=== PATIENT | male | born 1945 | race Caucasian/White ===

== ENCOUNTER 2017-01-05 14:13 | Inpatient (IN) | payer MEDICARE, OTHER ==
--- NOTE | ~2017-01-05 | CN ---
Consultation Report [facility] [address] [place]. [address] NAME: AMBAR MONTES : [birth year] STATUS : ADM IN PAT#: [id number] AGE: 71 ADM/REG DATE : 01/05/17 MR#: [id number] REPORT SERV DATE: 01/07/17 DICTATED BY: JUSTIN LIGHT DATE: 01/07/17 REPORT STATUS : Draft TRANSCRIBED BY: MODL DATE: 01/07/17 DATE OF CONSULTATION: This patient has a history of colorectal cancer with colorectal anastomosis. Last colonoscopy was in 2013. He has also had some gastroparesis. He recently was noted to have a decreased hemoglobin. He is on Eliquis at home. He has not seen any gross blood. Denies any dizziness. PAST MEDICAL HISTORY: History of atrial fibrillation on Eliquis; AICD pacer. Colon cancer in 2002. Left lung lobectomy in 2004. MEDICINES: 1. ProAir. 2. Xanax. 3. Cordarone. 4. Eliquis. 5. Baby aspirin. 6. MiraLAX. 7. Singulair. 8. Crestor. 9. Entresto. PHYSICAL EXAMINATION: VITAL SIGNS: Blood pressure 135/73. CHEST: Clear. CARDIAC: Exam normal. ABDOMEN: Soft, nontender. EXTREMITIES: No deformity or edema. IMPRESSION: Iron deficiency. Probably has chronic low-grade blood loss. No gross bleeding. PLAN: We will do EGD in colon. MG/IJEOMA Justin Light M.D. / [id number] CC: MD APOLINAR Arango
--- NOTE | ~2017-01-05 | CN ---
Consultation Report [facility] [address] [facility] [place]. [address] NAME: AMBAR MONTES : [birth year] STATUS : ADM Anay PAT#: [id number] AGE: 71 ADM/REG DATE : 01/05/17 MR#: [id number] REPORT SERV DATE: 01/06/17 DICTATED BY: EZEKIEL QUEEN DATE: 01/05/17 REPORT STATUS : Draft TRANSCRIBED BY: MODL DATE: 01/05/17 CARDIOLOGY CONSULTATION DATE OF CONSULTATION: REQUESTING PHYSICIAN: Artur Herrera MD [facility] PHYSICIAN: Mahin Olivera M.D. INDICATION: A 71-year-old man with cardiomyopathy and atrial fibrillation. HISTORY OF PRESENT ILLNESS: Mr. Montes is a 71-year-old man who has been followed by Dr. Olivera for a number of years with a history of a non-ischemic cardiomyopathy and atrial fibrillation. Overall, he has been doing fairly well from a cardiac standpoint. He went to see his primary care doctor recently, and he had some blood drawn. He returned today and was noted to be anemic. There was a question of some vague chest tightness, so he was sent to the emergency room and admitted. He has had no specific exertional symptoms. He has had a little bit of fatigue. This all seems to correlate with his lower blood count. He has no palpitations, lightheadedness, dizziness, or syncope. No lower extremity edema, PND, or orthopnea. He does have some generalized fatigue. He has not noticed any black tarry stools. No fevers or chills. No nausea. REVIEW OF SYSTEMS: As per the history of present illness. Ten other systems are negative. PAST MEDICAL HISTORY: 1. Variable cardiomyopathy with recent LVEF of 55% by echocardiogram on 08/28. 2. History of ventricular tachycardia status post defibrillator, on chronic antiarrhythmic medications. 3. Hypertension. 4. Hypercholesterolemia. 5. PVCs. 6. History of metastatic colon cancer. FAMILY HISTORY: No heart disease early in life. SOCIAL HISTORY: No tobacco. No alcohol. ALLERGIES: FENTANYL AND SILVER. HOME MEDICATIONS: Albuterol, Xanax 0.5 p.o. b.i.d., Cordarone 200 in the morning and 100 in the evening, Eliquis 5 p.o. b.i.d., aspirin 81 daily, carvedilol 3.125 mg p.o. b.i.d., Proscar 5 daily, Lasix 40 q.48 h., Vascepa, Singulair, multivitamin, MiraLAX, potassium 10 daily, Crestor 40 daily, and Entresto b.i.d. Consultation Report [place] [address] [place]. [address] NAME: AMBAR MONTES : [birth year] STATUS : ADM Anay PAT#: [id number] AGE: 71 ADM/REG DATE : 01/05/17 MR#: [id number] REPORT SERV DATE: 01/06/17 DICTATED BY: EZEKIEL QUEEN DATE: 01/05/17 REPORT STATUS : Draft TRANSCRIBED BY: IJEOMA DATE: 01/05/17 PHYSICAL EXAMINATION: VITAL SIGNS: The patient is afebrile. Heart rate 66 and blood pressure 120/58. GENERAL: The patient is pleasant, elderly white male, in no apparent distress. HEENT: Conjunctivae are anicteric, no xanthelasma, lips without cyanosis. NECK: Supple, normal JVP, carotids +2 without bruit. LUNGS: Clear to auscultation bilaterally, no wheezes, rales or rhonchi. CARDIOVASCULAR: Regular rate and rhythm. Normal S1 and S2 without S3. No murmur or rub. PMI is nondisplaced. ABDOMEN: Soft, nontender, nondistended, with normal bowel sounds. No hepatomegaly. EXTREMITIES: No clubbing, cyanosis or edema. NEURO/PSYCH: Alert and oriented to person, place and time. No obvious neurologic deficits. Mood and affect normal. DATA: Lab significant for hematocrit of 33.6, microcytic. Creatinine is 1.2. BNP is 215. Chest x-ray shows no airway disease. EKG shows sinus rhythm with ventricular pacing. IMPRESSION: 1. Anemia with apparent gastrointestinal bleeding. 2. History of atrial fibrillation, on chronic anticoagulation. CHADS Vasc score has been 3. Moderate stroke risk. 3. History of non-ischemic cardiomyopathy. Recent echocardiogram in August of 2016, with EF of 55%. 4. History of biventricular ICD with non-sustained ventricular tachycardia. Stable on antiarrhythmic therapy. 5. Colon cancer. Reportedly metastatic. 6. History of hypertension, high cholesterol, and sleep apnea. RECOMMENDATIONS: Mr. Montes presents with anemia and some vague chest tightness. I think this is unlikely to be ischemia related. He does have anemia. No gross GI bleeding as best I can tell. His Eliquis has been held, and that is reasonable. I think he has moderate stroke risk off anticoagulants. I agree with whatever GI evaluation is necessary and would recommend restarting Eliquis if possible after that evaluation is complete, and I have discussed this with the patient. Thank you for this consultation. Please contact me if you have any further questions. I will notify Dr. Olivera of his admission. WO/MODL Consultation Report [facility] [address] [facility] [place] [place] [address] NAME: AMBAR MONTES : [birth year] STATUS : ADM Anay PAT#: [id number] AGE: 71 ADM/REG DATE : 01/05/17 MR#: [id number] REPORT SERV DATE: 01/06/17 DICTATED BY: EZEKIEL QUEEN DATE: 01/05/17 REPORT STATUS : Draft TRANSCRIBED BY: MODMichelle DATE: 01/05/17 Ezekiel Queen M.D., Ph.D, F.A.C.C. / [id number] CC: Emma Meza MD
--- NOTE | ~2017-01-05 | EGD ---
EGD REPORT [facility] [address]. [address] NAME: AMBAR MONTES : 47 STATUS : ADM IN PAT#: [id number] AGE: 71 ADM/REG DATE : 01/05/17 MR#: [id number] REPORT SERV DATE: 01/07/17 DICTATED BY: JUSTIN LIGHT DATE: 01/07/17 REPORT STATUS : Draft TRANSCRIBED BY: [facility] DATE: 01/07/17 Endoscopy Center Patient Name: Ambar Montes Date of : 1945 Attending MD: JUSTIN LIGHT MD Procedure Date No Time: 01/07/2017 Procedure: Colonoscopy Indications: Iron deficiency anemia Referring MD: APOLINAR MAJOR Medicines: Propofol per Anesthesia Complications: No immediate complications. Procedure: Pre-Anesthesia Assessment: - ASA Grade Assessment: [ASA Grade]. - ASA Grade Assessment: III - A patient with severe systemic disease. After I obtained informed consent, the scope was passed under direct vision. Throughout the procedure, the patient's blood pressure, pulse, and oxygen saturations were monitored continuously. The PCF [id number] was introduced through the anus and advanced to the ileocolonic anastomosis. The colonoscopy was performed without difficulty. The patient tolerated the procedure well. The quality of the bowel preparation was excellent. Findings: The ileum, 2 cm from the ileocecal anastomosis contained one sessile, non-bleeding polyp. The polyp was 3 mm in diameter. The polyp was removed with a cold biopsy forceps. Resection and retrieval were complete. There was evidence of a prior end-to-side colo-colonic anastomosis in the distal ascending colon. This was patent. This was characterized by healthy appearing mucosa. This was traversed. Multiple small-mouthed diverticula were found in the sigmoid colon. The retroflexed view of the distal rectum and anal verge was normal and showed no anal or rectal abnormalities. Impression: - One polyp. Resected and retrieved. - Patent end-to-side colo-colonic anastomosis. - Diverticulosis in the sigmoid colon. Recommendation: - Return patient to [facility] for [facility] care. Procedure Code(s): --- Professional --- 96804, Colonoscopy, flexible, proximal to splenic flexure; with biopsy, single or multiple EGD REPORT [address] [address] NAME: AMBRA MONTES : [birth year] STATUS : ADM IN [facility]#: [id number] AGE: 71 ADM/REG DATE : 01/05/17 MR#: [id number] REPORT SERV DATE: 01/07/17 DICTATED BY: JUSTIN LIGHT. DATE: 01/07/17 REPORT STATUS : Draft TRANSCRIBED BY: [employer] DATE: 01/07/17 Diagnosis Code(s): --- Professional --- K63.89, Other specified diseases of intestine Z98.0, Intestinal bypass and anastomosis status K57.30, Diverticulosis of large intestine without perforation or abscess without bleeding D50.9, Iron deficiency anemia, unspecified CPT copyright 2013 [employer]. All rights reserved. The codes documented in this report are preliminary and upon card fixer review may be revised to meet current compliance requirements. Justin Light MD JUSTIN LIGHT MD 01/07/2017 1:04 PM This report has been signed electronically. Number of Addenda: 0 Note Initiated On: 01/07/2017 12:17 PM Scope Withdrawal Time 0 hours 0 minutes 0 seconds [address] [place] [address]
--- NOTE | ~2017-01-05 | HP ---
History And Physical [address] [address] NAME: AMBAR MONTES : [birth year] STATUS : ADM Anay PAT#: [id number] AGE: 71 ADM/REG DATE : 01/05/17 MR#: [id number] REPORT SERV DATE: 01/06/17 DICTATED BY: NOE JUÁREZ DATE: 01/05/17 REPORT STATUS : Draft TRANSCRIBED BY: IJEOMA DATE: 01/05/17 DATE OF ADMISSION: 01/05/2017 CHIEF COMPLAINT: Low hemoglobin. HISTORY OF PRESENT ILLNESS: This is a 71-year-old man with past medical history of colon cancer, who comes in to the ED after being told by primary care physician that his hemoglobin was low. The patient reports no complaints. He denies any hematochezia, hemoptysis, melena. The patient reports one episode of diarrhea yesterday. Denies any fever, chills, cough, chest pain, shortness of breath, palpitations, diaphoresis, dizziness, abdominal pain, loss of consciousness, slurred speech, localized weakness. The patient was evaluated in the emergency room and found his hemoglobin to be around 10. The patient reports that primary care physician had checked his hemoglobin a couple of months ago and it was normal, reported a 3 unit drop. The patient was admitted for further management as his Hemoccult was positive. PAST MEDICAL HISTORY: 1. History of paroxysmal atrial fibrillation, on Eliquis, status post ablation. 2. COPD. 3. AICD pacer placement by Dr. Olivera. 4. Hypertension. 5. History of GI bleed. 6. Obstructive sleep apnea, on CPAP. 7. Colon cancer in 2002, status post right hemicolectomy and then spread cancer in his lung, status post left lung lobectomy in 2004, and history of chemotherapy. 8. Nonischemic cardiomyopathy. 9. Gastroparesis. HOME MEDICATIONS: Include: 1. ProAir HFA two puffs inhaled every four hours p.r.n. 2. Xanax 0.5 mg p.o. b.i.d. 3. Cordarone 200 mg p.o. daily. 4. 100 mg p.o. at bedtime. 5. Eliquis 5 mg p.o. b.i.d. 6. Aspirin 81 mg p.o. at bedtime. 7. Coreg 3.125 mg p.o. b.i.d. 8. Finasteride 5 mg at bedtime. 9. Lasix 40 mg every 48 hours. 10.Vascepa 1 g capsule 2 g p.o. b.i.d. 11.Singulair 10 mg p.o. at bedtime. 12.Multivitamin p.o. daily. 13.MiraLAX packet at bedtime. 14.Klor-Con 10 mEq p.o. daily. 15.Crestor 40 mg at bedtime. 16.Entresto 24/25 mg p.o. b.i.d. History And Physical [address] [address] NAME: AMBAR MONTES : [birth year] STATUS : ADM Anay PAT#: [id number] AGE: 71 ADM/REG DATE : 01/05/17 MR#: [id number] REPORT SERV DATE: 01/06/17 DICTATED BY: NOE JUÁREZ DATE: 01/05/17 REPORT STATUS : Draft TRANSCRIBED BY: IJEOMA DATE: 01/05/17 ALLERGIES: FENTANYL, SILVER, IV AMIODARONE. PAST SURGICAL HISTORY: 1. Left hip surgery. 2. AICD replacement. 3. Left lung lobectomy metastatic colon cancer. 4. Right hemicolectomy for colon cancer. 5. Cholecystectomy. 6. Pelvic fracture surgery. SOCIAL HISTORY: Denies any alcohol, tobacco, or illicit drug use. FAMILY HISTORY: Positive for heart disease and diabetes. REVIEW OF SYSTEMS: 12-point system reviewed, otherwise negative per HPI. PHYSICAL EXAMINATION: VITAL SIGNS: Temperature 97.7, heart rate 64, blood pressure 135/73, respiratory rate 18, O2 saturation 97 on room air. GENERAL: No acute distress. HEENT: EOMI, PERRLA, nonicteric sclerae, nonerythematous pharynx. NECK: Supple. No JVD. No lymphadenopathy. RESPIRATORY: Clear to auscultation bilaterally. No wheezes, rhonchi, or crackles. CARDIOVASCULAR: Regular rate and rhythm. No murmurs, rubs, or gallops. ABDOMEN: Bowel sounds positive. Soft, nontender, nondistended. No rebound or guarding. EXTREMITIES: No edema or cyanosis. NEUROLOGICAL: Alert and oriented x3. Cranial nerves 2 through 12 intact. Nonfocal. LABORATORY DATA: WBC of 5.7, hemoglobin 10.4, hematocrit 33.6, platelets 244. INR 1.3. Sodium 142, potassium 3.9, chloride 106, bicarb 28, BUN 20, creatinine 1.21, glucose 92, calcium 8.7, magnesium 2.4, BNP 215. Troponin less than 0.02. IMAGING: Chest x-ray, portable impression: Stable mild cardiomegaly with pacing devices in place. No acute process otherwise demonstrated radiographically. ASSESSMENT: 1. Gastrointestinal bleed. 2. History of atrial fibrillation, on Eliquis. 3. Chronic obstructive pulmonary disease without exacerbation. 4. History of AICD/pacer. 5. Hypertension. 6. Obstructive sleep apnea. 7. History of colon cancer. 8. Nonischemic cardiomyopathy. 9. History of gastroparesis. History And Physical [address] [address] NAME: AMBAR MONTES : [birth year] STATUS : ADM Anay PAT#: [id number] AGE: 71 ADM/REG DATE : 01/05/17 MR#: [id number] REPORT SERV DATE: 01/06/17 DICTATED BY: NOE JUÁREZ DATE: 01/05/17 REPORT STATUS : Draft TRANSCRIBED BY: IJEOMA DATE: 01/05/17 PLAN: The patient will be admitted to medical bed. Consult Dr. Romero for GI bleed, consult Dr. Olivera for question of further anticoagulation. Serial H and H q.6 hours. Transfuse to keep hemoglobin greater than 8. Hold Eliquis and aspirin for now. Restart appropriate home medications. Protonix GTT, DVT prophylaxis SCDs. Further evaluation and management per clinical course. CODE STATUS: Full code. Total time for history and physical 35 minutes. RLV/MODL Emma Meza MD / [id number] CC: Emma Meza MD
--- NOTE | ~2017-01-05 | EGD ---
EGD REPORT [facility] [address] [address] NAME: AMBAR MONTES : 47 STATUS : ADM IN PAT#: [id number] AGE: 71 ADM/REG DATE : 01/05/17 MR#: [id number] REPORT SERV DATE: 01/07/17 DICTATED BY: JUSTIN LIGHT DATE: 01/07/17 REPORT STATUS : Draft TRANSCRIBED BY: [facility] DATE: 01/07/17 Endoscopy Center Patient Name: Ambar Montes Date of : 1945 Attending MD: JUSTIN LIGHT MD Procedure Date No Time: 01/07/2017 Procedure: Upper GI endoscopy Indications: Iron deficiency anemia Referring MD: APOLINAR MAJOR Medicines: Propofol per Anesthesia Complications: No immediate complications. Procedure: Pre-Anesthesia Assessment: - ASA Grade Assessment: III - A patient with severe systemic disease. After obtaining informed consent, the endoscope was passed under direct vision. Throughout the procedure, the patient's blood pressure, pulse, and oxygen saturations were monitored continuously. The GIF H190 [id number] was introduced through the mouth, and advanced to the third part of duodenum. The upper GI endoscopy was accomplished without difficulty. The patient tolerated the procedure well. Findings: The esophagus was normal. The stomach was normal. The examined duodenum was normal. Impression: - Normal esophagus. - Normal stomach. - Normal examined duodenum. Procedure Code(s): --- Professional --- 83785, Esophagogastroduodenoscopy, flexible, transoral; diagnostic, including collection of specimen(s) by brushing or washing, when performed (separate procedure) Diagnosis Code(s): --- Professional --- D50.9, Iron deficiency anemia, unspecified CPT copyright 2013 [employer]. All rights reserved. The codes documented in this report are preliminary and upon health information coder review may be revised to meet current compliance requirements. EGD REPORT [facility] [address] [address] NAME: AMBAR MONTES : [birth year] STATUS : ADM IN [facility]#: [id number] AGE: 71 ADM/REG DATE : 01/05/17 MR#: [id number] REPORT SERV DATE: 01/07/17 DICTATED BY: JUSTIN LIGHT. DATE: 01/07/17 REPORT STATUS : Draft TRANSCRIBED BY: [employer] DATE: 01/07/17 Justin Light MD JUSTIN LIGHT MD 01/07/2017 1:00 PM This report has been signed electronically. Number of Addenda: 0 Note Initiated On: 01/07/2017 12:16 PM Scope Withdrawal Time 0 hours 0 minutes 0 seconds [address] [place] [address]
--- NOTE | ~2017-01-05 | DS ---
Discharge Summary [place] [address] [facility] [place]. [address] NAME: AMBAR MONTES : [birth year] STATUS : DIS IN PAT#: [id number] AGE: 71 ADM/REG DATE : 01/05/17 MR#: [id number] REPORT SERV DATE: 01/08/17 DICTATED BY: NOE JUÁREZ DATE: 01/07/17 REPORT STATUS : Draft TRANSCRIBED BY: IJEOMA DATE: 01/07/17 ADMISSION DATE: 01/05/2017 DISCHARGE DATE: 01/07/2017 DISCHARGE DIAGNOSES: 1. GI bleed/iron deficiency anemia. 2. History of atrial fibrillation, on Coumadin and aspirin. 3. Chronic obstructive pulmonary disease without exacerbation. 4. History of AICD/pacer. 5. Hypertension. 6. Obstructive sleep apnea. 7. History of colon cancer. 8. Nonischemic cardiomyopathy. 9. History of gastroparesis. 10.IVF. DISCHARGE MEDICATIONS: Include: 1. Xanax 0.5 mg p.o. daily. 2. Amiodarone 200 mg p.o. daily and 100 mg at bedtime. 3. Coreg 3.125 mg p.o. b.i.d. 4. Proscar 5 mg p.o. at bedtime. 5. Singulair 10 mg p.o. at bedtime. 6. MiraLax one packet p.o. at bedtime. 7. Entresto one tab p.o. b.i.d. 8. Aspirin 81 mg p.o. at bedtime. 9. ProAir HFA two puffs inhaled every four hours p.r.n. 10.Klor-Con 10 mEq p.o. daily. 11.Multivitamin p.o. daily. 12.Lasix 40 mg every 48 hours. 13.Eliquis 5 mg p.o. b.i.d. 14.Crestor 40 mg p.o. at bedtime. 15.Vascepa 2 g p.o. b.i.d. 16.Pepcid 20 mg p.o. b.i.d. DISPOSITION AND FOLLOWUP: The patient is medically stable for discharge. Follow up with primary care physician in one week. Follow up with Cardiology and GI as directed. The patient was directed to follow up with GI for capsule endoscopy. HISTORY AND PHYSICAL: Per initial assessment. DISCHARGE VITALS: Temperature 97.7, heart rate 62, blood pressure 110/56, respiratory rate 21, O2 saturation 97 on room air. DISCHARGE LABS: WBC of 5.7, hemoglobin 9.8, hematocrit 37.7, platelets 244. Sodium 144, potassium 3.4, chloride 111, bicarb 27, BUN 11, creatinine 1.09, calcium 8.6. Discharge Summary [address] [address] NAME: AMBAR MONTES : [birth year] STATUS : DIS IN PAT#: [id number] AGE: 71 ADM/REG DATE : 01/05/17 MR#: [id number] REPORT SERV DATE: 01/08/17 DICTATED BY: NOE JUÁRZE DATE: 01/07/17 REPORT STATUS : Draft TRANSCRIBED BY: IJEOMA DATE: 01/07/17 IMAGING: Chest x-ray, impression, stable mild cardiomegaly, no acute process. HOSPITAL COURSE: A 71-year-old man with past medical history of paroxysmal atrial fibrillation, on Eliquis and aspirin, rate controlled. Comes into the ED as he was noticed to have a drop in hemoglobin by his primary care physician. The patient was admitted to the hospital and Dr. Romero of GI was consulted, and the patient's Cardiology was consulted for question of further anticoagulation. The patient's hemoglobin was stable throughout the course of the hospitalization. The patient did have endoscopy and colonoscopy done. Endoscopy results normal. Colonoscopy results, a 2 cm nonbleeding polyp, status post resection. Per Cardiology's recommendations, due to a risk for CVA, the patient will need to resume Eliquis and aspirin at discharge. GI has agreed with the patient to continue antiplatelet/anticoagulation. The patient is instructed to follow up with GI for capsule endoscopy. The patient was instructed to come back to the ED if any evidence of GI bleeding. The patient to resume all medications as described above. Further management as an outpatient. Follow up with primary care physician in one week. Total time for discharge planning 35 minutes. DICTATED BY: MD ROBERTO Arango/IJEOMA Emma Meza MD / [id number] CC: MD Fran Arango M.D.
[2017-01-05 13:32] LABS: BASOPHILS 0.2 %; BASOPHILS ABSOLUTE 0.01 10/3/uL (0.0-0.16); EOSINOPHILS 1.4 %; EOSINOPHILS ABSOLUTE 0.08 10/3/uL (0.0-0.53); ER CBC TAT 0 Hrs 03 Mins; HEMATOCRIT 33.6 % (40.0-51.0); HEMOGLOBIN 10.4 g/dL (13.6-17.8); IMMATURE GRANULOCYTES 0.2 %; IMMATURE GRANULOCYTES ABSOLUTE 0.01 10/3/uL (0.0-0.11); LYMPHOCYTES 25.4 %; LYMPHOCYTES ABSOLUTE 1.46 10/3/uL (0.67-4.30); MANUAL DIFF NO %; MEAN CORPUSCULAR VOLUME 77.6 fL (80-100); MEAN PLATELET VOLUME 9.6 fL (9.2-13.0); MONOCYTES 9.6 %; MONOCYTES ABSOLUTE 0.55 10/3/uL (0.21-1.20); NEUTROPHILS 63.2 %; NEUTROPHILS ABSOLUTE 3.63 10/3/uL (2.02-8.40); PLATELET COUNT 244 10/3/uL (150-400); RBC DISTRIBUTION WIDTH 15.8 % (12.0-16.0); RED CELL COUNT 4.33 10/6/uL (4.7-6.1); WHITE BLOOD CELLS 5.7 10/3/uL (4.5-10.5)
[2017-01-05 13:39] LABS: INTERNATIONAL NORMAL RATI 1.3 UNITS (-); PARTIAL THROMBO TIME 36.8 SEC (22.5-37.2); PROTIME (NOT ORD) 16.5 SEC (12.0-14.5)
[2017-01-05 13:48] LABS: BUN (BLOOD UREA NITROGEN) 20 MG/DL (6-23); CALCIUM, SERUM 8.7 MG/DL (8.5-10.4); CHEST PAIN PROFILE TAT 0 Hrs 19 Mins; CHLORIDE, SERUM 106 MMOL/L (96-112); CO2 (CARBON DIOXIDE) 28 MMOL/L (24-34); CREATININE 1.21 MG/DL (0.70-1.30); GFR AFRICAN AMERICAN 70 ML/MIN (>=60); GFR NON AFRICAN AMERICAN 60 ML/MIN (>=60); GLUCOSE, SERUM 92 MG/DL (60-99); POTASSIUM, SERUM 3.9 MMOL/L (3.5-5.3); SODIUM, SERUM 142 MMOL/L (135-148); TROPONIN I <0.02 NG/ML (<0.05)
[~2017-01-05 14:13] MED LIST: AFRIN15 NAS; ASAB PO; ASTELIN NAS; ASTEPRO0.15 % NAS; ATRONASAL6 NAS; AZELASTINE 0.1% NAS; CORDARONE PO; COREG12 PO; COREG25 PO; COREG3; COREG3 PO; COREG6 PO; COZ25 PO; CRESTOR20 MG PO; CRESTOR40 MG PO; DIGITEK0.125 MG PO; DIGITEK0.25 MG PO; DIOVAN40 MG PO; DRONED400 PO; ELIQUIS 5 MG TAB5 MG PO; FISH-EPA1000 MG PO; FLONASE NAS; FLOVENT220 INH; HALF81 PO; L40 PO; L80 PO; LAN25 PO; LEVAQUIN5T PO; LOFIBRA54 MG PO; MEXILETINE150 MG OR; MULTIPLE VIT PO; MULTIVIT/MIN PO; MULTIVITAMI1 PO; NEXIUM40 PO; OCEAN NAS; OCEAN NASAL SPRAY NAS; OPTIVAR0.05 % OP; PEP20 PO; PROAIR HFA INH; PROVHFA INH; RAN500 PO; RANEXA 500 MG PO; REG5 PO; RYTHMOL225 MG PO; SACU1TAB PO; SINGULAIR1 PO; SPIRO25 PO; STERAPDS12; SYMBICORT 160/41 INH INH; TAMBOCOR150 MG PO; VASCEPA 1GM PO; VASCEPA1 GM PO; VASEPA PO; VICODINTAB PO; VIT D PO; VYTORIN 10/80 T1 TAB PO; X5 PO; XANAX2 MG PO; XIFAXAN550 MG PO; ZYRTEC ALLGY10 MG PO; [UNRECOGNIZED DRUG - REMARK]
[2017-01-05] MEDS ORDERED: SINGULAIR1 PO (15:19)
[2017-01-05] MEDS ORDERED: MIRALAX POWDER1 PKT PO (15:19)
[2017-01-05] MEDS ORDERED: SACU1TAB PO (15:19)
[2017-01-05] MEDS ORDERED: X5 PO (15:20)
[2017-01-05] MEDS ORDERED: HALF81 PO (15:20)
[2017-01-05] MEDS ORDERED: PROAIR HFA INH (15:21)
[2017-01-05] MEDS ORDERED: KLOR-CON 1010 MEQ PO (15:21)
[2017-01-05] MEDS ORDERED: MULTIPLE VIT PO (15:21)
[2017-01-05] MEDS ORDERED: L40 PO (15:22)
[2017-01-05] MEDS ORDERED: COREG3 PO (15:22)
[2017-01-05] MEDS ORDERED: PROSCAR5 PO (15:22)
[2017-01-05] MEDS ORDERED: CORDARONE PO ×2 (15:23)
[2017-01-05] MEDS ORDERED: CRESTOR40 MG PO (15:23)
[2017-01-05] MEDS ORDERED: ELIQUIS 5 MG TAB5 MG PO (15:23)
[2017-01-05] MEDS ORDERED: VASCEPA1 GM PO (15:24)
[2017-01-05 20:19] LABS: HEMATOCRIT 33.4 % (40.0-51.0); HEMOGLOBIN 10.3 g/dL (13.6-17.8)
[2017-01-05 20:53] LABS: FERRITIN 10 NG/ML (26-388); IRON BINDING CAPACITY 386 MCG/DL (250-450); IRON, SERUM 33 MCG/DL (35-150)
[2017-01-06 01:49] LABS: HEMATOCRIT 30.8 % (40.0-51.0); HEMOGLOBIN 9.9 g/dL (13.6-17.8)
[2017-01-06 08:11] LABS: HEMATOCRIT 32.2 % (40.0-51.0)
[2017-01-06 14:17] LABS: HEMATOCRIT 32.1 % (40.0-51.0)
[2017-01-07 05:32] LABS: HEMATOCRIT 31.7 % (40.0-51.0); HEMOGLOBIN 9.8 g/dL (13.6-17.8)
[2017-01-07 05:45] LABS: CALCIUM, SERUM 8.6 MG/DL (8.5-10.4); CHLORIDE, SERUM 111 MMOL/L (96-112); CO2 (CARBON DIOXIDE) 27 MMOL/L (24-34); CREATININE 1.09 MG/DL (0.70-1.30); GFR AFRICAN AMERICAN 79 ML/MIN (>=60); GFR NON AFRICAN AMERICAN 68 ML/MIN (>=60); GLUCOSE, SERUM 81 MG/DL (60-99); POTASSIUM, SERUM 3.4 MMOL/L (3.5-5.3); SODIUM, SERUM 144 MMOL/L (135-148)
[2017-01-07 05:46] LABS: BUN (BLOOD UREA NITROGEN) 11 MG/DL (6-23)
[2017-01-07] MEDS ORDERED: PEP20 PO (19:15)
== END 2017-01-07 20:30 | disposition home or self-care (01) | DRG 348 ==
LOC: ER 14:13 → 4EA 16:54 → 5SO 22:20
PROVIDERS: Emergency Medicine; Internal Medicine; Internal Medicine Gastroenterology
PROC: 0DBB8ZZ Excision of Ileum, Via Natural or Artificial Opening Endoscopic (ICD-10-PCS; principal; 2017-01-07 12:00)
PROC: 0DJ08ZZ Inspection of Upper Intestinal Tract, Via Natural or Artificial Opening Endoscopic (ICD-10-PCS; 2017-01-07 12:00)
DX: K92.2 Gastrointestinal hemorrhage, unspecified (principal); I42.8 Other cardiomyopathies; I48.0 Paroxysmal atrial fibrillation; J44.9 Chronic obstructive pulmonary disease, unspecified; K31.84 Gastroparesis; D62 Acute posthemorrhagic anemia; D13.39 Benign neoplasm of other parts of small intestine; K57.30 Diverticulosis of large intestine without perforation or abscess without bleeding; I10 Essential (primary) hypertension; G47.33 Obstructive sleep apnea (adult) (pediatric); E87.6 Hypokalemia; K58.9 Irritable bowel syndrome, unspecified; Z85.038 Personal history of other malignant neoplasm of large intestine; Z79.82 Long term (current) use of aspirin; Z79.899 Other long term (current) drug therapy; Z90.49 Acquired absence of other specified parts of digestive tract; Z98.890 Other specified postprocedural states; Z79.01 Long term (current) use of anticoagulants; Z90.2 Acquired absence of lung [part of]; Z95.810 Presence of automatic (implantable) cardiac defibrillator; Z92.21 Personal history of antineoplastic chemotherapy; Z82.49 Family history of ischemic heart disease and other diseases of the circulatory system; Z83.3 Family history of diabetes mellitus
CPT/HCPCS: 36415; 71010; 80048; 82728; 83540; 83550; 83735; 83880; 84132; 84484; 85014; 85018; 85025; 85610; 85730; 86850; 86900; 86901; 86920; 88305; 93005; 99291; A9270-GY; C9113